=== PATIENT | male | born 1950 | race Caucasian/White ===

== ENCOUNTER 2019-11-10 20:46 | Emergency (ER) | payer OTHER, BC ==
[~2019-11-10] VITALS: Ht 167.6 cm; Wt 103.0 kg
[2019-11-10] MEDS ORDERED: CARVEDILOL25 MG PO (21:00)
[2019-11-10] MEDS ORDERED: QUINAPRIL 20 MG20 MG PO (21:01)
[2019-11-10] MEDS ORDERED: DILTIAZEM 24HR240 M1 PO (21:01)
[2019-11-10] MEDS ORDERED: CHLORTHALIDONE25 MG PO (21:01)
[2019-11-10] MEDS ORDERED: AMARYL2 M1 PO (21:02)
[2019-11-10] MEDS ORDERED: ACTOS 30 MG TAB30 M1 PO (21:02)
[2019-11-10] MEDS ORDERED: LIPITOR 20 MG T20 M1 PO (21:02)
[2019-11-10] MEDS ORDERED: FLOMAX0.4 MG PO (21:03)
[2019-11-10 21:24] VITALS: BP 195/76
== END 2019-11-10 21:47 | disposition home or self-care (01) ==
LOC: ER 20:46
DX: H53.8 Other visual disturbances (principal); F17.210 Nicotine dependence, cigarettes, uncomplicated; I10 Essential (primary) hypertension; E11.9 Type 2 diabetes mellitus without complications; Z79.899 Other long term (current) drug therapy